=== PATIENT | male | born 1980 | race Caucasian/White ===

== ENCOUNTER 2023-07-02 10:21 | Emergency (ER) | payer OTHER ==
--- OUTSIDE RECORDS SUMMARY | 2023-07-02 10:25 | XMS REPORT | Continuity of Care Document ---
:1980 Author Organization [facility] t Address [address] [facility] [address] [place] [id number] Care Team Providers Name Role Phone NITHYA LAWS Primary Care Physician Unavailable NITHYA LAWS Attending Clinician Unavailable ALEXIA HERNANDEZ Attending Clinician Unavailable OSCAR JACOBS Attending Clinician Unavailable ROB ORNELAS Attending Clinician Unavailable MERE HOPKINS Attending Clinician Unavailable Kd Sidhu MD Attending Clinician [phone] Tiffanie Montelongo MD Attending Clinician [phone] Bill Walsh MD Attending Clinician Unavailable Nava RYAN, Justus G Attending Clinician Isai Brewster MD Attending Clinician ISAI BREWSTER Attending Clinician Unavailable ISAI BREWSTER Attending Clinician Unavailable BILL WALSH Attending Clinician Unavailable BILL WALSH Attending Clinician Unavailable KD SIDHU Attending Clinician Unavailable OJSE NICE Attending Clinician Unavailable LAB90 Attending Clinician Unavailable NAREN JEAN Attending Clinician Unavailable NAREN JEAN Attending Clinician Unavailable BILL WALSH Admitting Clinician Unavailable Payers Payer Name Policy Type Policy Number Effective Date Expiration Date Gayatri mccoy AETNA [facility] 9 [id number] 2023 00:00:00 SILVER: HMO HAIR BALER 94 ON STAND Problems Condition Condition Condition Status Onset Resolution Last Treating Co mments Source Name Details Category Date Date Treatment Clinician Date Bipolar Bipolar Disease Recurre [facility] 00 [place] Inappropri Inappropri Disease Active [facility] ate shocks ate shocks 06-18 Emely kes from ICD from ICD 00:00: Medica l (implantab (implantab 00 Ce nter le le cardiovert cardiovert er-defibri er-defibri llator) llator) Hypomagnes Hypomagnes Disease Active [facility] emia emia 06-18 [facility] 00 [place] Vomiting Vomiting Disease [facility] diarrhea diarrhea 00:00: Medica l 00 Center Alcohol Alcohol Disease Active [facility] use use 06-18 [facility]: [facility] 00 [place] Essential Essential Disease Active [facility] hypertensi hypertensi 06-18 Emely kes on on 00:00: Medical 00 [place] Chest pain Chest pain Disease Active [facility] 06[facility] 00 [place] Prolonged Prolonged Disease Active [facility] Q-T Q-T 06-18kes interval interval 00:00: Medica l on ECG on ECG 00 Center History of History of Disease Active K elsey ventricula ventricula 06-13 Se ybold r r 00:00: - tachycardi tachycardi 00 Ex terna a a l Cardiac Cardiac Disease Active Rosa defibrilla defibrilla 06-13 Se ybold tor in tor in 00:00: - place place 00 Externa l HTN HTN Disease Active Rosa (hypertens (hypertens 06-13 Se ybold ion) ion) 00:00: - 00 Externa l Bipolar 2 Bipolar 2 Disease Active Alfonso sey disorder disorder 06-13 Seybol d 00:00: - 00 Externa l Alcohol Alcohol Disease Active Rosa abuse abuse 06-13 Seybold 00:00: - 00 Externa l Allergies, Adverse Reactions, Alerts Allergy Allergy Status Severity Reaction(s) Onset Inactive Treating Comm ents Source Name Type Date Date Clinician PENICILL Allergy Active High Hives 2023-[address] [facility] IN 06-18 [facility] 00[facility]: Medical 00 Center Penicill Propensi Active Hives, [facility] in ty to Itching 06-18 [facility] adverse 00:00: Medical reaction 00 Center s PENICILL DRUG Active Med ITCHING 2018- Univers IN INGREDI 11-20 ity of 00:00: [address] Branch Penicill Propensi Active Itching 2018- Kelse y in G ty to 11-20 Seybold adverse 00:00: - reaction 00 Externa s l NO KNOWN Allergy Active [facility] S Social History Social Habit Start Date Stop Date Quantity Comments Source Gender identity Rosa millerанна - External Sexual orientation Rosa Underwood - External Tobacco use and 2023-06-13 2023-06-13 Smokeless tobacco Ke ryderey ybанна exposure 00:00:00 00:00:00 non-user - External Alcohol intake 2023-06-13 2023-06-13 8.57 /d Rosa Carvalhoperry bold 00:00:00 00:00:00 - External History of Social 2023-06-13 2023-06-13 Rosa ybанна function 00:00:00 00:00:00 - External Education 2023-06-13 2023-06-13 13 Rosababita Underwood 00:00:00 00:00:00 - External Sex Assigned At [address] Emely kes 00:00:00 00:00:00 [facility] Smoking Status Start Date Stop Date Source Never smoked tobacco Rosa Carvalhoangela jj - External Medications Ordered Filled Start Stop Current Ordering Indication Dosage Frequency Signature Comments Components Source Medication Medication Date Date Medication? Clinician (SIG) Name Name apixaban 2023- Yes 5mg Q.5D Take [address] [facility] [address] (ELIQUIS) 5 9-15 03-13 tablet (5 Emely kes mg Tab 00:00: 23:59 mg total) Medic al tablet 00 :00 by mouth 2 Center (two) times daily for 180 days. LORazepam 2022- No .5mg Take 1 [facility] (ATIVAN) 06-2211 tablet [facility] 0.5 MG 00:00: 23:59 (0.5 mg Medical tablet 00 :00 total) by Center mouth every 6 (six) hours for 1 day. Max Daily Amount: 2 mg folic acid 2023- Yes 1mg QD Take [address] (FOLVITE) 1 06-21 tablet (1 Emely kes MG tablet 00:00: 23:59 mg total) Me dical 00 :00 by mouth Center daily. multivitami 2023- Yes 1{tbl} QD Take [address] n 06-21 tablet by [facility] (THERAGRAN) 00:00: 23:59 mouth Medi clarence tablet 00 :00 daily. Center thiamine 2023- Yes 100mg QD Take 1 [facility] 100 MG 06-21 tablet [facility] tablet 00:00: 23:59 (100 mg Medical 00 :00 total) by Center mouth daily. FLUoxetine 2022- No 10mg QD Take [address] (PROzac) 10 06-20 tablet (10 L ukes MG tablet 12:34: 00:00 mg total) Me dical 59 :00 by mouth Center daily. ARIPiprazol 2022- No 5mg QD Take [address] [facility] [facility] e (ABILIFY) 06-20 tablet (5 Emely kes 5 MG tablet 12:34: 00:00 mg total) Medical 59 :00 by mouth Center daily. metoprolol 2022- No 25mg Q.5D Take [address] tartrate 06-20 tablet (25 Luke s (LOPRESSOR) 12:34: 00:00 mg total) Medical 25 MG 59 :00 by mouth 2 Center tablet (two) times daily. LORazepam 2022- No anxiety 1mg Q.5D Take [address] (ATIVAN) 1 06-20 tablet (1 Forest es MG tablet 12:34: 00:00 mg total) Me dical 59 :00 by mouth 2 Center (two) times daily. Max Daily Amount: 2 mg metoprolol 2023- Yes 37.5mg Q.5D Take 37.[address] tartrate 06-20 mg by [facility]ukes 37.5 mg Tab 00:00: 23:59 mouth 2 Me dical 00 :00 (two) Center times daily. apixaban 2022- No 10mg Q.5D Take [address] (ELIQUIS) 5 06-20- tablets Luke s mg Tab 00:00: 23:59 (10 mg Medical tablet 00 :00 total) by Center mouth 2 (two) times daily for 7 days. LORazepam 2022- No 1mg Take 1 [facility] (ATIVAN) 1 06-20 tablet (1 [facility] es MG tablet 00:00: 23:59 mg total) Me dical 00 :00 by mouth Center every 6 (six) hours for 1 day. Max Daily Amount: 4 mg Metoprolol Yes [id number] 25mg Take 1 K elsey Tartrate 06-13 tablet (25 Seybo ld (LOPRESSOR) 00:00: mg total) - 25 MG oral 00 by mouth Exter na Tablet daily. l Fluoxetine Yes [id number] 10mg Take 1 K elsey HCl 10 MG 06-13 capsule Seybold oral 00:00: (10 mg - Capsule 00 total) by Externa mouth l daily. Aripiprazol Yes [id number] 5mg Take 1 Rosa e (Abilify) 06-13 tablet (5 Sey bold 5 MG oral 00:00: mg total) - Tablet 00 by mouth Externa daily. l Vital Signs Vital Name Observation Time Observation Value Comments Source WEIGHT 2023-06-20 05:43:00 92.579 kg WEIGHT 2023-06-19 05:20:00 92.579 kg HEIGHT 2023-06-18 23:00:00 170.2 cm WEIGHT 2023-06-20 05:43:00 92.579 kg WEIGHT 2023-06-19 05:20:00 92.579 kg HEIGHT 2023-06-18 23:00:00 170.2 cm WEIGHT 2023-06-20 05:43:00 92.579 kg WEIGHT 2023-06-19 05:20:00 92.579 kg HEIGHT 2023-06-18 23:00:00 170.2 cm Respiratory rate 2023-06-13 15:38:00 20 /min Jyoti Underwood - External Body height 2023-06-13 15:38:00 170.2 cm Rosa lugo - External Body weight 2023-06-13 15:38:00 98.884 kg Rosa alvarezbold - External BMI 2023-06-13 15:38:00 34.14 kg/m2 Rosa alvarezboabhijit - External Oxygen saturation in 2023-06-13 15:38:00 95 /min Rosa Underwood - Arterial blood by External Pulse oximetry Systolic blood 2023-06-13 15:38:00 128 mm[Hg] Rosa Carvalhoybold - pressure External Diastolic blood 2023-06-13 15:38:00 82 mm[Hg] Johan amador Seybold - pressure External Heart rate 2023-06-13 15:38:00 115 /min Rosa alvarezboabhijit - External Body temperature 2023-06-13 15:38:00 37 Jennifer Jyoti Underwood - External Systolic blood 2023-06-20 15:55:00 156 mm[Hg] notify darcie [facility] Diastolic blood 2023-06-20 15:55:00 104 mm[Hg] notify darcie [facility] Heart rate 2023-06-20 15:55:00 90 /min [facility] Body temperature 2023-06-20 15:55:00 36.44 Jennifer [facility] Respiratory rate 2023-06-20 15:55:00 18 /min [facility] Oxygen saturation in 2023-06-20 15:55:00 95 /min [facility] Arterial blood by Medical Ce nter Pulse oximetry Body weight 2023-06-20 05:43:00 92.579 kg [facility] BMI 2023-06-20 05:43:00 31.97 kg/m2 [facility] Body height 2023-06-18 23:00:00 170.2 cm [facility] Procedures Procedure Date / Time Performed Performing Clinician Sourc e ICD CHECK 2023-06-20 11:09:36 Bill Walsh [facility] BASIC METABOLIC PANEL 2023-06-20 05:26:00 Isai Brewster [facility] MAGNESIUM 2023-06-20 05:26:00 Ney Isai [facility] APTT 2023-06-20 05:26:00 Doroteo, [facility] APTT 2023-06-19 21:36:00 Doroteo, [facility] 2D ECHO W/ DOPPLER 2023-06-19 15:50:00 Jakob Francis [facility] (CW/PW/COLOR) [facility] APTT 2023-06-19 12:27:00 Doroteo, [facility] CBC (HEMOGRAM ONLY) 2023-06-19 06:16:00 Doroteo, [facility] APTT 2023-06-19 06:16:00 Doroteo, [facility] CTA CHEST FOR PULMONARY 2023-06-19 05:10:00 Doroteo, [facility] EMBOLUS [facility] B-TYPE NATRIURETIC FACTOR 2023-06-19 02:44:00 Doroteo, [facility] (BNP) [facility] CBC W/PLT COUNT & AUTO 2023-06-19 02:44:00 Doroteo, [facility] COMPREHENSIVE METABOLIC 2023-06-19 02:44:00 Doroteo, [facility] TSH 2023-06-19 02:44:00 Doroteo, [facility] CBC W/PLT COUNT & AUTO 2023-06-19 02:44:00 Doroteo, [facility] ECG 12-LEAD 2023-06-18 23:38:51 Doroteo, [facility] ECG 12-LEAD 2023-06-18 23:38:51 Unknown, Hl7 Doctor [facility] HIGH SENSITIVITY TROPONIN 2023-06-18 23:25:00 Doroteo, [facility] MAGNESIUM 2023-06-18 23:25:00 Doroteo, [facility] PHOSPHORUS 2023-06-18 23:25:00 Doroteo, [facility] D-DIMER 2023-06-18 23:25:[address] [facility] Plan of Care Planned Activity Planned Date Details Comments Source Future Scheduled 2032-10-09 DTAP/TDAP/TD VACCINES ([address] [facility] Test 00:00:00 - Td or Tdap) [code = Medica l Center DTAP/TDAP/TD VACCINES (2 - Td or Tdap)] Future Scheduled 2023-06-13 Influenza Vaccine (#1) [facility] Test 00:00:00 [code = Influenza Vaccine Pa dical Center (#1)] Future Scheduled 2014 Lipid panel (procedure) [facility] Test 00:00:00 [code = 54681415] Medical Ce nter Future Scheduled 1997 HEPATITIS C SCRE[facility]ING [facility] Test 00:00:00 [code = HEPATITIS C Medical Center SCREENING] Future Scheduled [address] [facility] Test 00:00:00 virus screening Medical Cent er (procedure) [code = 107693660] Future Scheduled [address] [facility] Test 00:00:[address] [facility] ica Center (12+) [code = Tobacco Cessation Counseling and Screening (12+)] Future Scheduled 1980-01-30 COVID-19 VACCINE (#1) [facility] Test 00:00:00 [code = COVID-19 VACCINE Med ical Center (#1)] Encounters Start End Encounter Admission Attending Care Care Encounter Source Date/Time Date/Time Type Type Clinicians Facility Department ID 2023-08-06 2023-08-06 Outpatient ROSA LAWS [id number] Rosa 10:00:00 10:00:00 NITHYA Carvalhoybol scotty 2023-08-05 2023-08-05 Outpatient ROSA HERNANDEZ [id number] Rosa 13:40:00 13:40:00 ALEXIA fajardo 2023-07-30 2023-07-30 Outpatient ROSA LAWS [id number] Rosa 08:00:00 08:00:00 NITHYA Carvalhoybol scotty 2023-07-01 2023-07-01 Outpatient ROSA JACOBS [id number] Rosa 09:00:00 09:00:00 OSCAR Carvalhoybol d 2023-06-30 2023-06-30 Outpatient PREZAS, ROSA LUCERO [id number] Rosa 00:00:00 00:00:00 NITHYA Seybol d 2023-06-26 2023-06-26 Outpatient ROB ORNELAS ROSA LUCERO [id number] Rosa 10:00:00 10:00:00 Seybol d 2023-06-26 2023-06-26 Outpatient PREZAS, ROSA LUCERO [id number] Rosa 00:00:00 00:00:00 NITHYA Seybol d 2023-06-26 2023-06-26 Outpatient PREZAS, ROSA LUCERO [id number] Rosa 00:00:00 00:00:00 NITHYA Seybol d 2023-06-24 2023-06-24 Outpatient HUNDL, ROSA LUCERO [id number] Rosa 11:00:00 11:00:00 MERE Seybol d 2023-06-24 2023-06-24 Outpatient PREZAS, ROSA LUCERO [id number] Rosa 00:00:00 00:00:00 NITHYA Seybol d 2023-06-23 2023-06-23 Outpatient PREZAS, ROSA LUCERO [id number] Rosa 00:00:00 00:00:00 NITHYA Seybol d 2023-06-23 2023-06-23 Outpatient PREZAS, ROSA LUCERO [id number] Rosa 00:00:00 00:00:00 NITHYA Seybol d 2023-06-18 2023-06-20 [facility] [id number] [facility] 21:23:00 21:05:00 Encounter Afaq, Tiffanie Adam Doroteo, Bill [facility], Justus G [place] Ney, Isai 2023-06-18 2023-06-20 Outpatient NEY [facility] Cardiology [id number] [facility] 21:23:00 21:05:00 ISAI 2023-06-20 2023-06-20 Outpatient ROSA BREWSTER [id number] Rosa 00:00:00 00:00:00 ISAI Seybol d 2023-06-19 2023-06-19 Outpatient ER NEY, SLE [facility] [id number] [facility] 13:56:30 13:56:30 ISAI 2023-06-19 2023-06-19 Outpatient ER DOROTEO [facility] [id number] [facility] 04:14:48 04:14:48 BILL 2023-06-19 2023-06-19 Outpatient DOROTEOROSA [id number] Rosa 00:00:00 00:00:00 BILL Seybol d 2023-06-18 2023-06-18 Outpatient PREZAROSA Mendieta [id number] Rosa 00:00:00 00:00:00 NITHYA Seybol d 2023-06-18 2023-06-18 Outpatient ROSA NICE [id number] Rosa 00:00:00 00:00:00 JOSE Seybo ld 2023-06-18 2023-06-18 [facility] [id number] [facility] [address] 00:00:00 00:00:00 [facility] 2023-06-17 2023-06-17 Outpatient ROSA LAWS [id number] Rosa 00:00:00 00:00:00 NITHYA Seybol d 2023-06-13 2023-06-13 Outpatient LAB90 ROSA LUCERO [id number] Rosa 11:20:00 11:20:00 Seybol d 2023-06-13 2023-06-13 Outpatient PREROSA HORTON [id number] Rosa 10:15:00 10:15:00 NITHYA Seybol d 2023-06-06 2023-06-06 Outpatient PREZAROSA Mendieta [id number] Rosa 00:00:00 00:00:00 NITHYA Seybol d 2023-04-23 2023-04-23 Outpatient ROSA HOPKINS [id number] Rosa 15:00:00 15:00:00 MERE Seybol d 2023-04-17 2023-04-17 Outpatient NAREN TOLLIVER [facility] [id number] [facility] 13:00:00 13:00:00 NAREN JEAN [facility] 2023-03-24 2023-03-24 Outpatient ROSA HOPKINS [id number] Rosa 08:30:00 08:30:00 MERE Aldridge scotty 2023-03-17 2023-03-17 Outpatient R MELANYNAREN Amador [facility] [id number] [facility] 14:00:00 14:00:00 NAREN JEAN [facility] Results Test Description Test Time Test Comments Results Result Comments Source MAGNESIUM 2023-06-20 07:44:44 Test Item Value Reference Range Interpretation Comme nts MAGNESIUM (BEAKER) (test code = 627) 1.8 mg/dL 1.6-2.6 Prescription Benefit Specialist ID - EMBASIC METABOLIC [id number] 07:44:44 Test Item Value Reference Range Interpretation Comments SODIUM (BEAKER) 136 meq/L 136-145 (test code = 381) POTASSIUM 3.4 meq/L 3.5-5.1 L (BEAKER) (test code = 379) CHLORIDE (BEAKER) 104 meq/L 98-107 (test code = 382) CO2 (BEAKER) 21 meq/L 22-29 L (test code = 355) BLOOD UREA 8 mg/dL 7-21 NITROGEN (BEAKER) (test code = 354) CREATININE 0.91 mg/dL 0.57-1.25 (BEAKER) (test code = 358) GLUCOSE RANDOM 90 mg/dL 70-105 (BEAKER) (test code = 652) CALCIUM (BEAKER) 8.9 mg/dL 8.4-10.2 (test code = 697) EGFR (BEAKER) 109 Interpretatio n of eGFR (test code = mL/min/1.73 values Stage De scription 1092) sq m Result G1 Norm al or high >=90 G2 Mildly decreased 60-89 G3a Mildl y to moderately 45-5 9 G3b Moderately to s everely 30-44 G4 Severl y decreased 15-29 G5 Kidne y failure <15Reported eGF R is based on the CKD-EPI 2020 equation that d oes not use a race coefficientEsti mated GFR is not as accur ate as Creatinine Krystyna oral in predicting glom erular filtration rate . Estimated GFR is not appl icable for dialysis patien ts Prescription Benefit Specialist ID - ADMINOperator ID - ADMINOperator ID - [id number] 06:59:59 Test Item Value Reference Range Interpretation Comments PARTIAL THROMBOPLASTIN TIME 77.5 seconds 22.5-36.0 H (BEAKER) (test code = 760) [id number] 22:43:23 Test Item Value Reference Range Interpretation Comments PARTIAL THROMBOPLASTIN TIME 48.9 seconds 22.5-36.0 H (BEAKER) (test code = 760) [id number] 12:56:40 Test Item Value Reference Range Interpretation Comments PARTIAL THROMBOPLASTIN TIME 59.6 seconds 22.5-36.0 H (BEAKER) (test code = 760) [id number] 06:50:41 Test Item Value Reference Range Interpretation Comments PARTIAL THROMBOPLASTIN TIME 25.4 seconds 22.5-36.0 (BEAKER) (test code = 760) CBC (HEMOGRAM ONLY)2023-06-19 06:25:52 Test Item Value Reference Range Interpretation Comments WHITE BLOOD CELL COUNT (BEAKER) 5.3 K/ L 3.5-10.5 (test code = 775) RED BLOOD CELL COUNT (BEAKER) 4.39 M/ L 4.63-6.08 L (test code = 761) HEMOGLOBIN (BEAKER) (test code = 13.3 GM/DL 13.7-17.5 L 410) HEMATOCRIT (BEAKER) (test code = 37.8 % 40.1-51.0 L 411) MEAN CORPUSCULAR VOLUME (BEAKER) 86 fL 79-92 (test code = 753) MEAN CORPUSCULAR HEMOGLOBIN 30.3 pg 25.7-32.2 (BEAKER) (test code = 751) MEAN CORPUSCULAR HEMOGLOBIN CONC 35.2 GM/DL 32.3-36.5 (BEAKER) (test code = 752) RED CELL DISTRIBUTION WIDTH 13.1 % 11.6-14.4 (BEAKER) (test code = 412) PLATELET COUNT (BEAKER) (test 177 K/CU MM 150-450 code = 756) MEAN PLATELET VOLUME (BEAKER) 9.9 fL 9.4-12.4 (test code = 754) NUCLEATED RED BLOOD CELLS 0 /100 WBC 0-0 (BEAKER) (test code = 413) CTA CHEST FOR PULMONARY [id number] 05:52:58 [facility] : 1980 Sex: MCLINICAL HISTORY: PE suspected, intermediate prob, positive D-dimerchest painFINDINGS:Multiple axial images of the chest were performed after theuncomplicated administration of IV contrast, utilizing a pulmonaryembolism protocol. Post-processing coronal reformats were created andinterpreted. This exam was performed according to our departmental dose-optimizationprogram, which includes automated exposure co ntrol, adjustment of the mAand/or kV according to patient size and/or use of the iterativereconstruction technique.Axial MIPS were created.Study quality:Adequate.Comparison:None.Pulmonary arteries: There are small, peripheral pulmonary emboli in theright lower lobe and left upper lobe. There is no large or centralpulmonary embolism.Lung parenchyma: Bilateral dependent opacities, probably atelectasis.Pleural effusion: None.Pneumothorax: None.Tracheobronchial tree: No significant findings.Cardiac contours and great vessels: No significant findings. No CTevidence of right heart dysfunction.Mediastinum: No significant findings.Lymph Nodes: No adenopathy in the mediastinum or pablo.Skeleton: No acute abnormality.Other:Transthoracic ICD with the generator in the left lateral chest.Limited images of upper abdomen: No significant findings.IMPRESSION:Small, peripheral pulmonary emboli in the right lower lobe and leftupper lobe. No large or central pulmonary embolism or CT evidence ofright heart dysfunction. A verbal report was given to the patient's nurse, Elizabeth, at the time ofdictation. Findings will be communicated to the physician in care of thepatient.Electronically Signed By: Vance Hssoqhg8206/19/2023 05:56 CDTWorkstation Name: [id number] 03:34:38 Test Item Value Reference Range Interpretation Comments THYROID STIMULATING HORMONE 2.082 uIU/mL 0.350-4.940 (BEAKER) (test code = 772) Prescription Benefit Specialist ID - ADMINCOMPREHENSIVE METABOLIC [id number] 03:31:37 Test Item Value Reference Range Interpretation Comments TOTAL PROTEIN 6.6 gm/dL 6.0-8.3 (BEAKER) (test code = 770) ALBUMIN (BEAKER) 3.7 g/dL 3.5-5.0 (test code = 1145) ALKALINE 70 U/L 40-150 PHOSPHATASE (BEAKER) (test code = 346) BILIRUBIN TOTAL 0.9 mg/dL 0.2-1.2 (BEAKER) (test code = 377) SODIUM (BEAKER) 133 meq/L 136-145 L (test code = 381) POTASSIUM (BEAKER) 3.8 meq/L 3.5-5.1 (test code = 379) CHLORIDE (BEAKER) 100 meq/L 98-107 (test code = 382) CO2 (BEAKER) (test 22 meq/L 22-29 code = 355) BLOOD UREA 9 mg/dL 7-21 NITROGEN (BEAKER) (test code = 354) CREATININE 1.03 mg/dL 0.57-1.25 (BEAKER) (test code = 358) GLUCOSE RANDOM 99 mg/dL 70-105 (BEAKER) (test code = 652) CALCIUM (BEAKER) 8.9 mg/dL 8.4-10.2 (test code = 697) AST (SGOT) 49 U/L 5-34 H (BEAKER) (test code = 353) ALT (SGPT) 40 U/L 6-55 (BEAKER) (test code = 347) EGFR (BEAKER) 94 Interpretatio n of eGFR (test code = 1092) mL/min/1.[address] age Description sq m Result G1 Lynne l or high >=90 G2 Mildly decreased 60-89 G3a Mildl y to moderately 45-5 9 G3b Moderately to s everely 30-44 G4 Severl y decreased 15-29 G5 Kidney failure <15Reported eGF R is based on the CKD-EPI 2020 equation that d oes not use a race coefficientEsti mated GFR is not as accur ate as Creatinine Krystyna mixon in predicting glom erular filtration rate . Estimated GFR is not appl icable for dialysis patien ts Prescription Benefit Specialist ID - ADMINB-TYPE NATRIURETIC FACTOR (BNP)2023-06-19 03:19:55 Test Item Value Reference Range Interpretation Comments B-TYPE NATRIURETIC PEPTIDE (BEAKER) 220 pg/mL 0-100 H (test code = 700) Prescription Benefit Specialist ID - ADMINCBC W/PLT COUNT & AUTO [id number] 02:55:31 Test Item Value Reference Range Interpretation Comments WHITE BLOOD CELL COUNT (BEAKER) 5.4 K/ L 3.5-10.5 (test code = 775) RED BLOOD CELL COUNT (BEAKER) 4.38 M/ L 4.63-6.08 L (test code = 761) HEMOGLOBIN (BEAKER) (test code = 13.2 GM/DL 13.7-17.5 L 410) HEMATOCRIT (BEAKER) (test code = 37.7 % 40.1-51.0 L 411) MEAN CORPUSCULAR VOLUME (BEAKER) 86 fL 79-92 (test code = 753) MEAN CORPUSCULAR HEMOGLOBIN 30.1 pg 25.7-32.2 (BEAKER) (test code = 751) MEAN CORPUSCULAR HEMOGLOBIN CONC 35.0 GM/DL 32.3-36.5 (BEAKER) (test code = 752) RED CELL DISTRIBUTION WIDTH 13.0 % 11.6-14.4 (BEAKER) (test code = 412) PLATELET COUNT (BEAKER) (test 199 K/CU MM 150-450 code = 756) MEAN PLATELET VOLUME (BEAKER) 10.3 fL 9.4-12.4 (test code = 754) NUCLEATED RED BLOOD CELLS 0 /100 WBC 0-0 (BEAKER) (test code = 413) NEUTROPHILS RELATIVE PERCENT 53 % (BEAKER) (test code = 429) LYMPHOCYTES RELATIVE PERCENT 34 % (BEAKER) (test code = 430) MONOCYTES RELATIVE PERCENT 10 % (BEAKER) (test code = 431) EOSINOPHILS RELATIVE PERCENT 2 % (BEAKER) (test code = 432) BASOPHILS RELATIVE PERCENT 1 % (BEAKER) (test code = 437) NEUTROPHILS ABSOLUTE COUNT 2.84 K/ L 1.78-5.38 (BEAKER) (test code = 670) LYMPHOCYTES ABSOLUTE COUNT 1.84 K/ L 1.32-3.57 (BEAKER) (test code = 414) MONOCYTES ABSOLUTE COUNT (BEAKER) 0.56 K/ L 0.30-0.82 (test code = 415) EOSINOPHILS ABSOLUTE COUNT 0.12 K/ L 0.04-0.54 (BEAKER) (test code = 416) BASOPHILS ABSOLUTE COUNT (BEAKER) 0.04 K/ L 0.01-0.08 (test code = 417) IMMATURE GRANULOCYTES-RELATIVE 0.40 % 0.00-1.00 PERCENT (BEAKER) (test code = 2801) HIGH SENSITIVITY TROPONIN [id number] 23:59:28 Test Item Value Reference Range Interpretation Comments HIGH SENSITIVITY 4 pg/ml See_Comment [Automated message] TROPONIN I (test code = The system which [id number]) generated this result transmitted ref erence range: <=35. Th e reference range was not used to interpr et this result as normal/abnormal . Prescription Benefit Specialist ID - ADMINThe JOB CAPTAIN STAT High Sensitivity Troponin-I results should be used in conjunction with other diagnostic information such as ECG, clinical observations and information, and patientsymptoms to aid in the diagnosis of ME. [id number] 23:53:09 Test Item Value Reference Range Interpretation Comments PHOSPHORUS (BEAKER) (test code = 2.8 mg/dL 2.3-4.7 604) Prescription Benefit Specialist ID - [id number] 23:53:09 Test Item Value Reference Range Interpretation Comments MAGNESIUM (BEAKER) (test code = 1.7 mg/dL 1.6-2.6 627) Prescription Benefit Specialist ID - [id number] 23:47:50 Test Item Value Reference Range Interpretation Comments D-DIMER QUANTITATIVE (BEAKER) 0.58 MG/L FEU <0.50 H (test code = 671) Intended Use: The D-Dimer Assay can be used to aid in the diagnosis of Deep Vein Thrombosis (DVT) and Pulmonary Embolism Disease (PED).In patients with low pre- test probability, various studies concerning STA Liatest D-dimer test have reported that with a cutoff value of 0.50 MG/L FEU, the Negative Predictive Value (NPV) regarding the exclusion of thrombosis is within 95-100% range.
[2023-07-02 11:16] LABS: Absolute Lymphocytes (CBC) 3.2 K/uL (0.7-4.9); Hematocrit 38.9 % (39.6-49.0); Lymphocytes % 42.2 % (15.3-44.8); MCV 90.3 fL (80-100); MPV 7.9 fL (7.6-11.3); Platelets 292 thou/uL (152-406)
[2023-07-02 11:32] LABS: Albumin 3.9 g/dL (3.4-5.0); Bilirubin Total 0.4 mg/dL (0.2-1.0); Potassium 3.7 mEq/L (3.5-5.1); Protein, Total 7.8 g/dL (6.4-8.2)
--- NOTE | 2023-07-02 12:16 | ER ---
Nurse's Notes [facility] [place] Name: Hebert Rand Age: 42 yrs Sex: Male : 1980 Arrival Date: 07/02/2023 Time: 10:21 Bed 7 Private MD: Diagnosis: Essential (primary) hypertension Presentation: 07/02 10:46 Chief complaint: Patient states: Sent by [facility] for high blood pressure when ph checking in, states that BP was 170s/110s, took dose of metoprolol prior to arriving at ED. Coronavirus screen: Vaccine status: Patient reports receiving the 2nd dose of the covid vaccine. Ebola Screen: No symptoms or risks identified at this time. Initial Sepsis Screen: Does the patient meet any 2 criteria? No. Patient's initial sepsis screen is negative. Does the patient have a suspected source of infection? No. Patient's initial sepsis screen is negative. Risk Assessment: Do you want to hurt yourself or someone else? Patient reports no desire to harm self or others. Onset of symptoms was July 02, 2023. 10:46 Method Of Arrival: Ambulatory ph 10:46 Acuity: ROSA 3 ph Historical: - Allergies: 10:37 PENICILLINS; ll1 - PMHx: 10:37 Bipolar disorder; depressive disorder; Hypertensive disorder; ll1 - Immunization history:: Adult Immunizations unknown. - Social history:: Smoking status: Patient denies any tobacco usage or history of. Patient uses alcohol, on a daily basis. 12-15 beers per day, last drink this morning. Patient/guardian denies using street drugs. - Family history:: not pertinent. Screenin:00 [facility] ED Fall Risk Assessment (Adult) History of falling in the last 3 months, ko1 including since admission No falls in past 3 months (0 pts) Confusion or Disorientation No (0 pts) Intoxicated or Sedated No (0 pts) Impaired Gait No (0 pts) Mobility Assist Device Used No (0 pt) Altered Elimination No (0 pt) Score/Fall Risk Level 0 - 2 = Low Risk Oriented to surroundings, Maintained a safe environment, Educated pt \T\ family on fall prevention, incl call for assistance when getting out of bed, Assessed \T\ reinforced patient's understanding of fall precautions, Provided non-skid footwear, Hourly rounding (assess needs \T\ fall precautionary measures) done, Used ambulatory aids as needed (educated on \T\ assisted with), Used gait belt as appropriate. Abuse screen: Denies threats or abuse. Denies injuries from another. Nutritional screening: No deficits noted. Tuberculosis screening: No symptoms or risk factors identified. Assessment: 10:45 General: Appears in no apparent distress. comfortable, Behavior is calm, cooperative. rs5 10:45 Pain: Denies pain. Neuro: Level of Consciousness is awake, alert, obeys commands, rs5 Oriented to person, place, time, situation. Cardiovascular: Denies chest pain, shortness of breath, Rhythm is regular. Respiratory: Airway is patent Respiratory effort is even, unlabored, Respiratory pattern is regular, symmetrical. GI: Abdomen is round non-distended, Abd is soft and non tender X 4 quads. : No signs and/or symptoms were reported regarding the genitourinary system. EENT: No signs and/or symptoms were reported regarding the EENT system. Derm: Skin is pink, warm \T\ dry. Musculoskeletal: Range of motion: intact in all extremities. 11:17 Reassessment: No changes from previously documented assessment. rs5 12:20 Reassessment: Patient and/or family updated on plan of care and expected duration. Pain rs5 level reassessed. Patient is alert, oriented x 3, equal unlabored respirations, skin warm/dry/pink. Vital Signs: 10:45 BP 118 / 85; Pulse 75; Resp 18; Temp 97.8; Pulse Ox 99% ; rs5 10:46 BP 118 / 85; Pulse 78; Resp 18; Temp 97.6; Pulse Ox 99% on R/A; Weight 92.53 kg; Height ph 5 ft. 7 in. ; 11:16 BP 113 / 68; Pulse 79; Resp 17; Pulse Ox 99% on R/A; rs5 12:26 BP 116 / 72; Pulse 80; Resp 18; Pulse Ox 99% ; ko1 10:46 Body Mass Index 31.95 (92.53 kg, 170.18 cm) ph ED Course: 10:24 Patient arrived in ED. mg5 10:28 Guillermo Mendoza MD is Attending Physician. rt 10:37 Arm band placed on Patient placed in an exam room, on a stretcher. ll1 10:48 Triage completed. ph 10:50 Berry, Kris, RN is Primary Nurse. rs5 11:00 Patient has correct armband on for positive identification. Bed in low position. Call ko1 light in reach. Side rails up X2. Provided Education on: na. Client placed on continuous cardiac and pulse oximetry monitoring. NIBP monitoring applied. playground monitor on. Door closed. Noise minimized. Warm blanket given. 11:00 No provider procedures requiring assistance completed. ko1 11:05 Inserted saline lock: 22 gauge in left antecubital area, using aseptic technique. Blood rs5 collected. 11:11 EKG done, by ED staff, reviewed by Guillermo Mendoza MD. em1 12:27 Awaiting transportation, Awaiting: called [facility] and left a message to get ko1 patient transported back to them. 12:27 IV discontinued, intact, bleeding controlled, No redness/swelling at site. Pressure ko1 dressing applied. Administered Medications: 12:16 Drug: LORazepam PO 1 mg PO once Route: PO; ko1 12:40 Follow up: Response: No adverse reaction rs5 Medication: 12:26 VIS not applicable for this client. ko1 Outcome: 12:16 Discharge ordered by . rt 12:44 Discharged to home ambulatory, ko1 12:44 Condition: stable 12:44 Discharge instructions given to patient, Instructed on discharge instructions, follow up and referral plans. medication usage, Demonstrated understanding of instructions, follow-up care, medications, Prescriptions given X 1, 12:45 Patient left the ED. ko1 Signatures: Walter Oropeza em1 Mari Garcia RN RN ph Emir Santiago RN RN ll1 Kimberly Huggins RN RN ko1 Guillermo Mendoza MD MD rt Kris Berry, RN RN rs5 Sherry Bragg mg5 Corrections: (The following items were deleted from the chart) 11:17 10:45 Cardiovascular: Rhythm is regular rs5 rs5
--- NOTE | 2023-07-02 12:16 | EDPHYS ---
Physician Documentation [facility] Name: Hebert Giorgi Age: 42 yrs Sex: Male : 1980 Arrival Date: 07/02/2023 Time: 10:21 Bed 7 Private MD: ED Physician Guillermo Mendoza HPI: 07/02 11:12 This 42 yrs old Male presents to ER via Ambulatory with complaints of High Blood rt Pressure. 11:12 Patient presents to the ED [facility] place with reported alcohol withdrawal, rt hypertension. He tried to check into there, noted that his blood pressure was about 170. Last drink this morning. He states he feels fatigued but denies any chest pain, shortness of breath, any complaints. Symptoms are mild in severity, no other aggravating relieving factors.. Historical: - Allergies: 10:37 PENICILLINS; ll1 - PMHx: 10:37 Bipolar disorder; depressive disorder; Hypertensive disorder; ll1 - Immunization history:: Adult Immunizations unknown. - Social history:: Smoking status: Patient denies any tobacco usage or history of. Patient uses alcohol, on a daily basis. 12-15 beers per day, last drink this morning. Patient/guardian denies using street drugs. - Family history:: not pertinent. ROS: 11:12 Constitutional: Negative for fever, chills, and weight loss, Eyes: Negative for injury, rt pain, redness, and discharge, Cardiovascular: Negative for chest pain, palpitations, and edema, Respiratory: Negative for shortness of breath, cough, wheezing, and pleuritic chest pain, Abdomen/GI: Negative for abdominal pain, nausea, vomiting, diarrhea, and constipation, MS/Extremity: Negative for injury and deformity, Skin: Negative for injury, rash, and discoloration, Neuro: Negative for headache, weakness, numbness, tingling, and seizure, Psych: Negative for depression, anxiety, suicide ideation, homicidal ideation, and hallucinations, Exam: 11:12 Constitutional: This is a well developed, well nourished patient who is awake, alert, rt and in no acute distress. Head/Face: Normocephalic, atraumatic. Chest/axilla: Normal chest wall appearance and motion. Nontender with no deformity. No lesions are appreciated. Cardiovascular: Regular rate and rhythm with a normal S1 and S2. No gallops, murmurs, or rubs. Normal PMI, no JVD. No pulse deficits. Respiratory: Lungs have equal breath sounds bilaterally, clear to auscultation and percussion. No rales, rhonchi or wheezes noted. No increased work of breathing, no retractions or nasal flaring. Abdomen/GI: Soft, non-tender, with normal bowel sounds. No distension or tympany. No guarding or rebound. No evidence of tenderness throughout. Skin: Warm, dry with normal turgor. Normal color with no rashes, no lesions, and no evidence of cellulitis. MS/ Extremity: Pulses equal, no cyanosis. Neurovascular intact. Full, normal range of motion. Neuro: Awake and alert, GCS 15, oriented to person, place, time, and situation. Cranial nerves II-XII grossly intact. Motor strength 5/5 in all extremities. Sensory grossly intact. Cerebellar exam normal. Normal gait. Psych: Awake, alert, with orientation to person, place and time. Behavior, mood, and affect are within normal limits. 11:12 ECG was reviewed by the Attending Physician. Vital Signs: 10:45 BP 118 / 85; Pulse 75; Resp 18; Temp 97.8; Pulse Ox 99% ; rs5 10:46 BP 118 / 85; Pulse 78; Resp 18; Temp 97.6; Pulse Ox 99% on R/A; Weight 92.53 kg; Height ph 5 ft. 7 in. ; 11:16 BP 113 / 68; Pulse 79; Resp 17; Pulse Ox 99% on R/A; rs5 12:26 BP 116 / 72; Pulse 80; Resp 18; Pulse Ox 99% ; ko1 10:46 Body Mass Index 31.95 (92.53 kg, 170.18 cm) ph MDM: 10:39 Patient medically screened. rt 12:16 Differential diagnosis: hypertensive crisis, Essential hypertension, alcohol withdrawal rt syndrome. Data reviewed: vital signs, nurses notes, lab test result(s), EKG. I considered the following discharge prescriptions or medication management in the emergency department Medications were administered in the Emergency Department. See MAR. Test considered but Not performed: Labs: Low suspicion for ischemic disease, troponin indicated. Care significantly affected by the following chronic conditions: Hypertension. Care significantly affected by the following Social Determinants of Health: Misuse of alcohol and/or drugs. ED course: Patient reportedly was prescribed Eliquis prior to discharge, was unable to pick it up due to not having money. There are no Eliquis sample coupons here, however, there is a Xarelto free trial card, this was given to the patient, will prescribe patient Xarelto, patient stable for outpatient care.. 07/02 10:49 Order name: CBC with Diff; Complete Time: 11:35 rt 07/02 10:49 Order name: CMP; Complete Time: 11:35 rt 07/02 10:49 Order name: EKG; Complete Time: 10:50 rt 07/02 10:49 Order name: EKG - Nurse/Tech; Complete Time: 11:07 rt EC:12 Rate is 74 beats/min. Rhythm is regular, Normal Sinus Rhythm with No ectopy. QRS [place] rt is Normal. IN interval is normal. QRS interval is normal. QT interval is normal. No Q waves. T waves are Normal. No ST changes noted. Interpreted by me. Administered Medications: 12:16 Drug: LORazepam PO 1 mg PO once Route: PO; ko1 12:40 Follow up: Response: No adverse reaction rs5 Disposition Summary: 07/02/23 12:16 Discharge Ordered Notes: Location: Home rt Problem: an ongoing problem rt Symptoms: have improved rt Condition: Stable rt Diagnosis - Essential (primary) hypertension rt Followup: rt - With: Private Physician - When: 2 - 3 days - Reason: Discharge Instructions: - Discharge Summary Sheet rt - Hypertension, Adult rt Forms: - Medication Reconciliation Form rt - Thank You Letter rt - Antibiotic Education rt - Prescription Opioid Use rt - Patient Portal Instructions rt - Leadership Thank You Letter rt Signatures: Dispatcher [employer] Mari Welch, RN RN Emir Santiago RN RN ll1 Kimberly Huggins RN RN ko1 Guillermo Mendoza MD MD rt Kris Berry RN rs5
[2023-07-02] MEDS ORDERED: LORAZEPAM 1 MG TABLET ONE (12:27)
[2023-07-02 13:06] VITALS: BP 118/85; TEMP 97.8; O2SAT 99
== END 2023-07-02 12:45 | disposition home or self-care (01) ==
LOC: ER 10:21
DX: I10 Essential (primary) hypertension (principal); F31.9 Bipolar disorder, unspecified; Z88.0 Allergy status to penicillin
CPT/HCPCS: 36415; 80053; 85025